=== PATIENT | female | born 1965 | race Hispanic/Latino ===

== ENCOUNTER 2024-08-28 00:46 | Inpatient (IN) | payer SELFPAY ==
[~2024-08-28] VITALS: Ht 147.3 cm; Wt 59.9 kg
[2024-08-28] VITALS (8 sets, daily range): BP systolic 115–150; BP diastolic 42–58; PULSE 68–88; RESP 17–20; TEMP 97.7–98.4; O2SAT 100
[2024-08-28 01:33] LABS: ANION GAP 19.9 mmol/L (8-16); CREATININE, SERUM 0.88 mg/dL (0.57-1.11); POTASSIUM 4.9 mmol/L (3.5-5.1)
[2024-08-28 01:34] LABS: CALCIUM 9.3 mg/dL (8.4-10.2)
[2024-08-28 01:38] LABS: HEMATOCRIT 32.6 % (34.2-44.1); MEAN CORPUSCULAR VOLUME 90.6 fL (81-99); WHITE BLOOD COUNT 6.48 x10e3/uL (4.8-10.8)
[2024-08-28 01:39] LABS: BASOPHILS % 0.6 % (0.0-1.0); EOSINOPHILS # (AUTO) 0.1 (0.0-0.4); EOSINOPHILS % 1.7 % (0.0-6.0); LYMPHOCYTES # (AUTO) 2.4 (1.0-3.2); MEAN CORPUSCULAR HEMOGLOBIN 30.6 pg (28-32); MEAN CORPUSCULAR HGB CONC 33.7 g/dL (31-35); MONOCYTES # (AUTO) 0.5 (0.2-0.8); MONOCYTES % 8.3 % (4.4-11.3); NEUTROPHILS # (AUTO) 3.4 (2.1-6.9); NEUTROPHILS % 52.2 % (38.7-80.0); PLATELET COUNT 240 x10e3/uL (140-360); RED CELL DISTRIBUTION WIDTH 12.3 % (11.7-14.4)
[2024-08-28] MEDS ORDERED: ONDANSETRON HCL INJ 2MG/ML 2ML 2 MG/ML VIAL IV PRN (02:00)
[2024-08-28] MEDS ORDERED: DEXTROSE 50% SYRINGE 50 ML IV PRN (02:00)
[2024-08-28] MEDS ORDERED: METOPROLOL SUCC50 MG PO (03:22)
[2024-08-28] MEDS ORDERED: PIOGLITAZONE HC30 MG PO (03:22)
[2024-08-28] MEDS ORDERED: PANTOPRAZOLE SO40 MG PO (03:22)
[2024-08-28] MEDS: SODIUM CHLORIDE 1 GM TAB PO SCH (03:52)
[2024-08-28] MEDS: INSULIN REGULAR, HUMAN 100 UNIT/1 ML SQ SCH (07:30)
[2024-08-28] MEDS ORDERED: FEROSUL325 MG PO (08:26)
[2024-08-28] MEDS ORDERED: LISINOPRIL5 MG PO (08:26)
[2024-08-28] MEDS ORDERED: GLIMEPIRIDE2 MG PO (08:26)
[2024-08-28] MEDS ORDERED: AMOX/K CLAV PO (08:30)
[2024-08-28] MEDS ORDERED: LISINOPRIL 2.5 MG TAB PO SCH (10:15)
[2024-08-28] MEDS ORDERED: HYDRALAZINE HCL 25 MG TAB PO PRN (10:30)
[2024-08-28] MEDS: ACETAMINOPHEN 325 MG TAB PO PRN (12:29)
[2024-08-28] MEDS: FERROUS SULFATE 325 MG TAB PO SCH (12:29)
[2024-08-28] MEDS: SODIUM CHLORIDE 0.9% 1000ML 1,000 ML IV SCH (12:30)
[2024-08-28] MEDS: METOPROLOL SUCCINATE 50 MG TAB XL PO SCH (12:30)
[2024-08-28] MEDS: LISINOPRIL 10 MG TAB PO SCH ×2 (12:32→20:53)
[2024-08-28 13:28] LABS: MAGNESIUM 1.6 MG/DL (1.3-2.1)
[2024-08-28 13:29] LABS: THYROID STIMULATING HORMONE 0.677 uIU/mL (0.350-4.940)
[2024-08-28 14:37] LABS: ANION GAP 19.8 mmol/L (8-16); CALCIUM 9.6 mg/dL (8.4-10.2); CREATININE, SERUM 0.84 mg/dL (0.57-1.11); POTASSIUM 4.8 mmol/L (3.5-5.1)
[2024-08-28 15:03] LABS: CLARITY,URINE CLEAR (CLEAR); COLOR,URINE YELLOW (YELLOW); GLUCOSE, URINE NEGATIVE (NEGATIVE); KETONES,URINE 1+ (NEGATIVE); LEUKOCYTE ESTERASE ,URINE NEGATIVE (NEGATIVE); NITRITE,URINE NEGATIVE (NEGATIVE); PH,URINE 5.5 (5 - 7); PROTEIN,URINE DIPSTICK NEGATIVE (NEGATIVE); URINE UROBILINOGEN 0.2 mg/dL (0.2 - 1)
[2024-08-28 15:04] LABS: BILIRUBIN,URINE NEGATIVE (NEGATIVE)
[2024-08-28 15:50] LABS: RBC,URINE 0-5 /HPF (0-5); WBC,URINE (MAN) 0-5 /HPF (0-5)
[2024-08-28 15:51] LABS: BACTERIA,URINE MODERATE /HPF; EPITHELIAL CELLS,URINE FEW /LPF
[2024-08-28 17:25] LABS: SODIUM,URINE 43 mmol/L
[2024-08-29 04:20] VITALS: BP 132/43; PULSE 76; RESP 18; TEMP 97.6; O2SAT 100
[2024-08-29] MEDS: PANTOPRAZOLE SOD 40 MG TABEC PO SCH (06:25)
[2024-08-29 06:29] LABS: BASOPHILS % 0.7 % (0.0-1.0); EOSINOPHILS % 2.7 % (0.0-6.0); HEMATOCRIT 29.1 % (34.2-44.1); HEMOGLOBIN 9.7 g/dL (12.0-16.0); LYMPHOCYTES % 44.5 % (18.0-39.1); MEAN CORPUSCULAR HEMOGLOBIN 30.7 pg (28-32); MEAN CORPUSCULAR HGB CONC 33.3 g/dL (31-35); MEAN CORPUSCULAR VOLUME 92.1 fL (81-99); MONOCYTES % 9.3 % (4.4-11.3); NEUTROPHILS % 42.8 % (38.7-80.0); PLATELET COUNT 226 x10e3/uL (140-360); RED BLOOD COUNT 3.16 x10e6/uL (3.6-5.1); RED CELL DISTRIBUTION WIDTH 12.5 % (11.7-14.4); WHITE BLOOD COUNT 4.07 x10e3/uL (4.8-10.8)
[2024-08-29 06:30] LABS: EOSINOPHILS # (AUTO) 0.1 (0.0-0.4); LYMPHOCYTES # (AUTO) 1.8 (1.0-3.2); MONOCYTES # (AUTO) 0.4 (0.2-0.8); NEUTROPHILS # (AUTO) 1.7 (2.1-6.9)
[2024-08-29 07:00] LABS: ANION GAP 15.3 mmol/L (8-16); CREATININE, SERUM 0.84 mg/dL (0.57-1.11); POTASSIUM 4.3 mmol/L (3.5-5.1)
[2024-08-29 07:01] LABS: ALBUMIN 3.7 g/dL (3.5-5.0); ALBUMIN/GLOBULIN RATIO 1.4 (0.8-2.0); BILIRUBIN,TOTAL 0.2 mg/dL (0.2-1.2); CALCIUM 8.6 mg/dL (8.4-10.2); TOTAL PROTEIN 6.3 g/dL (6.5-8.1)
[2024-08-29 07:24] LABS: MAGNESIUM 1.6 MG/DL (1.3-2.1); PHOSPHORUS 2.8 MG/DL (2.3-4.7)
[2024-08-29 08:00] VITALS: BP 128/69; PULSE 71; RESP 18; TEMP 98; O2SAT 100
[2024-08-29 09:15] VITALS: BP 128/69; PULSE 71; RESP 18; TEMP 98; O2SAT 100
[2024-09-06 07:01] LABS: BLOOD UREA NITROGEN 27 mg/dL (7-26); GLUCOSE 125 mg/dL (74-118); OSMOLALITY,SERUM 260 mOsm/kg (278-305); SODIUM 126 mmol/L (136-145)
== END 2024-08-29 12:14 | disposition home or self-care (01) | DRG 644 ==
LOC: ER 00:54 → ERHOLD 01:51 → MED/SURG3 02:48 → OBSVTOIN 10:19
PROVIDERS: ADMIT Internal Medicine; ATTEND Internal Medicine
DX: E22.2 Syndrome of inappropriate secretion of antidiuretic hormone (principal); L97.919 Non-pressure chronic ulcer of unspecified part of right lower leg with unspecified severity; N13.30 Unspecified hydronephrosis; E11.649 Type 2 diabetes mellitus with hypoglycemia without coma; Z79.84 Long term (current) use of oral hypoglycemic drugs; I10 Essential (primary) hypertension; E78.5 Hyperlipidemia, unspecified; G14 Postpolio syndrome; E66.9 Obesity, unspecified; Z68.27 Body mass index [BMI] 27.0-27.9, adult; Z79.899 Other long term (current) drug therapy
CPT/HCPCS: 36415; 71250; 74176; 80048; 80053; 81001; 82607; 82746; 82947; 82948; 83036; 83735; 83935; 84100; 84295; 84300; 84443; 84484; 84520; 85025; 93005; 99284; J2470; J7030